=== PATIENT | female | born 1950 | race Native Hawaiian/Other Pacific Islander ===

== ENCOUNTER 2016-09-19 13:34 | Outpatient (CLI) | payer OTHER ==
[~2016-09-19] VITALS: Ht 157.5 cm; Wt 204.1 kg
[~2016-09-19 13:34] MED LIST: ASA LO-DOSE81 MG PO; ASPIRIN81 M1 OR; ESCITALOPRAM20 MG PO; FLUT0.05 NAS; FURO20TA67 PO; GABA300C2 PO; KLOR-CON M2020 MEQ PO; LICE TREATMT1 % EX; LISI5TAB10 PO; OMEPRAZOLE40 MG PO; PANT40TA PO; PLAVIX75 MG PO; ROPINIROLE0.5 MG PO; SINGULAIR10 MG PO; SPIRIVA INH; TRIA0.1C19 TOP; ZANTAC300 MG PO
[2016-09-19 13:45] VITALS: BP 88/53; TEMP 98.5
== END 2016-09-19 20:08 | disposition home or self-care (01) ==
LOC: INF 13:34
DX: M81.0 Age-related osteoporosis without current pathological fracture (principal)
CPT/HCPCS: 36415; 82310; 96372; J0897

== ENCOUNTER 2017-01-25 17:28 | Inpatient (IN) | payer OTHER ==
[~2017-01-25] VITALS: Ht 154.9 cm; Wt 120.9 kg
[2017-01-25 17:15] VITALS: BP 136/80; TEMP 98.3
[2017-01-25 18:12] LABS: PLATELET COUNT 207 K/uL (152-353)
[2017-01-25 18:32] VITALS: BP 146/105
[2017-01-25 19:00] VITALS: BP 142/122
[2017-01-25 19:20] VITALS: BP 153/87
[2017-01-25 20:00] VITALS: BP 129/72; TEMP 98.2
[2017-01-25 21:31] VITALS: BP 129/72; TEMP 98.2; Ht 154.9 cm; Wt 120.9 kg
[2017-01-25] MEDS ORDERED: LORATADINE10 MG OR (22:31)
[2017-01-25] MEDS ORDERED: VESICARE5 MG OR (22:33)
[2017-01-25] MEDS ORDERED: MOBIC7.5 M1 PO (22:34)
[2017-01-25] MEDS ORDERED: ACID REDUCER150 M1 PO (22:40)
[2017-01-25] MEDS ORDERED: ASA LOW DOSE81 MG OR (22:45)
--- NOTE | 2017-01-25 23:11 | NUR ---
NEBULIZER EQUIPMENT WAS NOT BROUGHT FROM ER, HAD TO GET PATIENT NEW SET UP
[2017-01-26] VITALS: BP 95/42; TEMP 98.4
[2017-01-26 00:24] LABS: POTASSIUM 5.7 mmol/L (3.6-5.2)
--- NOTE | 2017-01-26 01:02 | NUR ---
01/25/17 AT 2130IV LASIX GIVE PER ORDER AND FLUSHED BEFORE AND AFTER EASILY WITH 5ML NS. IV LOCK INTACT WITH NO PROBLEMS NOTED.
[2017-01-26 04:00] VITALS: BP 110/42; TEMP 98.4
[2017-01-26 04:55] LABS: PLATELET COUNT 155 K/uL (152-353)
[2017-01-26 06:33] LABS: POTASSIUM 4.7 mmol/L (3.6-5.2)
[2017-01-26 07:41] VITALS: BP 98/44; TEMP 98.2
[2017-01-26 12:00] VITALS: BP 132/42; TEMP 98.1
[2017-01-26 16:18] VITALS: BP 144/91; TEMP 98
[2017-01-26 16:52] LABS: PLATELET COUNT 183 K/uL (152-353)
--- NOTE | 2017-01-26 17:50 | NUR ---
NOTIFIED DR STERLING OF BNP DOWN TO 221 AND WBC 17. NO NEW ORDERS RECEIVED.
[2017-01-26 20:00] VITALS: BP 90/46; TEMP 101.4
[2017-01-27 00:22] VITALS: BP 93/40; TEMP 100.3
[2017-01-27 04:00] VITALS: BP 107/49; TEMP 99
[2017-01-27 05:01] LABS: PLATELET COUNT 173 K/uL (152-353)
[2017-01-27 05:24] LABS: POTASSIUM 4.4 mmol/L (3.6-5.2)
--- NOTE | 2017-01-27 06:17 | NUR ---
01/26/17 AT [id number] IV LOCK TO R AC FLUSHED EASILY WITH 10 ML NS, NO PROBLEMS NOTED TO SITE.
[2017-01-27 08:00] VITALS: BP 113/60; TEMP 99.7
[2017-01-27 12:13] VITALS: BP 98/46; TEMP 98.5
[2017-01-27 16:00] VITALS: BP 93/52; TEMP 98.2
--- NOTE | 2017-01-27 19:40 | NUR ---
PT DISCHARGED TO HOME, GAVE D/C INSTRUCTIONS, IV D/C'D TIP INTACT, NO REDNESS, EDEMA OR SWELLING, PT AWAITING A RIDE HOME, NAD NOTED, NO C/O VOICED.
== END 2017-01-27 20:40 | disposition home or self-care (01) | DRG 292 ==
LOC: ED 17:28 → MED/SURG 19:00
PROVIDERS: ADMIT Family Medicine
DX: I50.9 Heart failure, unspecified (principal); J44.1 Chronic obstructive pulmonary disease with (acute) exacerbation; D72.828 Other elevated white blood cell count; F32.89 Other specified depressive episodes
CPT/HCPCS: 36415; 36600; 80053; 82805; 83735; 83880; 85027; 87070; 87205; 93005; 94640; 94664; 94760; 96374; 99283; J1940

== ENCOUNTER 2017-02-14 18:27 | Outpatient (CLI) | payer OTHER ==
[~2017-02-14 18:27] MED LIST changes: +ACID REDUCER150 M1 PO; +ASA LOW DOSE81 MG OR; +LORATADINE10 MG OR; +MOBIC7.5 M1 PO; +VESICARE5 MG OR
== END 2017-02-14 19:30 | disposition home or self-care (01) ==
LOC: LAB 18:27
DX: R06.02 Shortness of breath (principal); I50.9 Heart failure, unspecified
CPT/HCPCS: 83880

== ENCOUNTER 2017-03-03 12:57 | Outpatient (CLI) | payer OTHER ==
[2017-03-03] MEDS ORDERED: PROTONIX20 MG PO (18:51)
== END 2017-03-03 13:52 | disposition home or self-care (01) ==
LOC: INF 12:57
DX: M81.0 Age-related osteoporosis without current pathological fracture (principal)
CPT/HCPCS: 36415; 82310; 96372; J0897

== ENCOUNTER 2017-03-03 18:26 | Inpatient (IN) | payer OTHER ==
[~2017-03-03] VITALS: Ht 149.9 cm; Wt 116.6 kg
[2017-03-03] MEDS ORDERED: PROTONIX20 MG PO (18:51)
[2017-03-03 18:53] VITALS: BP 1047/48; BP 147/48; TEMP 99.2
[2017-03-03 19:42] LABS: PLATELET COUNT 178 K/uL (152-353)
[2017-03-03 20:22] LABS: PARTIAL THROMBOPLASTIN TIME 28.8 SECONDS (24.5-33.6)
[2017-03-03 21:57] VITALS: BP 138/64; TEMP 99
[2017-03-04] VITALS (23 sets, daily range): BP systolic 94–149; BP diastolic 42–97; TEMP 97.9–99; Ht 149.9 cm; Wt 116.6 kg
--- NOTE | 2017-03-04 02:43 | NUR ---
03/03/2017 @ 2206 PT. ADMITTED TO ROOM 1107 VIA WHEELCHAIR. PT. ORIENTED TO ROOM, CALL SYSTEM. PT. VERBALIZES UNDERSTANDING OF ALL INSTRUCTIONS. CALL LIGHT WITHIN REACH. WILL CONTINUE TO MONITOR.
--- NOTE | 2017-03-04 05:59 | NUR ---
PRN TREATMENT GIVEN TO HELP BRING O2 SATS UP, SATS WAS IN THE 70'S WITH NASAL CANNULA AT FIVE LITERS AND TREATMENT GOING COME UP TO 92
--- NOTE | 2017-03-04 07:00 | NUR ---
UPON ROUNDING, PT O2 SAT 88% ON 3L NC. PT ALERT AND ORIENTED. DENIES ANY PAIN/DISCOMFORT/SOB. ASSESSMENT COMPLETE. DR STERLING NOTIFIED OF PT CONDITIONED. RESP IN TO ASSESS PT AND DRAW ABG. 0800- ABG OBTAINED AND RESULTS CALLED TO DR STERLING. NEW ORDERS GIVEN TO MOVE PT TO PCU WITH BIPAP. 08- PT MOVED TO PCU 1, REPORT GIVEN TO MARLINE FATIMA.
--- NOTE | 2017-03-04 08:15 | NUR ---
PT TO PCU 1 [facility] RM [facility] PT ON 3L/NC,O2 SAT 88%. PT A& O X 3,DENIES STRESS.
[2017-03-04 08:25] LABS: PLATELET COUNT 151 K/uL (152-353)
--- NOTE | 2017-03-04 08:30 | NUR ---
PT PLACED ON BIPAP 12/6 34% O2 PER RT.BOUCHER TO BSD WITH CL YELLOW URINE.
[2017-03-04 08:38] LABS: POTASSIUM 4.8 mmol/L (3.6-5.2)
--- NOTE | 2017-03-04 09:30 | NUR ---
PT CONTINUES TO REST WITH EYES CLOSED,O2 SAT 91%.
--- NOTE | 2017-03-04 11:34 | NUR ---
PT WITH O2 SAT 84-85% RT AT BS ,BIPAP CHANGED TO AVAP MODE15/5 375 TV,36% O2,O2 SATS UP TO 89%-91%.
--- NOTE | 2017-03-04 13:30 | NUR ---
PT REFUED LUNCH,RESTING ON BIPAP,O2 SAT 90%.
--- NOTE | 2017-03-04 15:10 | NUR ---
PT ASSISTED TO TURN TO L SIDE,O2 SATS DECREASED TO 81% AFTER DRINKING WATER. SLOWLY BACK UP TO 88%. REPORTED TO SANTHOSH IN RT.
--- NOTE | 2017-03-04 17:00 | NUR ---
BATH & PERSONAL CARE. PT A& O,O2 SAT 91%.
--- NOTE | 2017-03-04 18:00 | NUR ---
PT CHANGED TO BIPAP ST 15/8,40% O2 PER RT.
--- NOTE | 2017-03-04 18:30 | NUR ---
DR STERLING IN TO SEE PT,REVIEWED ABG,NEW ORDERS TO RESUME HOME MEDS.
--- NOTE | 2017-03-04 20:00 | NUR ---
PM ASSESSMENT COMPLETED. PT REMAINS ON BI-PAP. BOUCHER DRAINING AT BEDSIDE. PT OFFERS NO COMPLAINTS AT THIS TIME.
--- NOTE | 2017-03-04 22:20 | NUR ---
DR. MC AT BEDSIDE FOR INTUBATION. RESPIRATORY THERAPIST AT BEDSIDE.
--- NOTE | 2017-03-04 22:30 | NUR ---
ETOMIDATE 20MG GIVEN IV PUSH PER DR. MC.
--- NOTE | 2017-03-04 22:32 | NUR ---
SUCCINYCHOLINE 100MG GIVEN PER DR. MC.
--- NOTE | 2017-03-04 22:45 | NUR ---
DIPRIVAN STARTED AT 5ML PER IV PUMP.
--- NOTE | 2017-03-04 23:00 | NUR ---
RADIOLOGY PRESENT FOR TUBE PLACEMENT.
--- NOTE | 2017-03-04 23:12 | NUR ---
DR. MC AT BEDSIDE READING CHEST X-RAY RESULTS OF TUBE PLACEMENT. ET TUBE PULLED BACK FROM 23 LIPLINE, TO [address] MC.
--- NOTE | 2017-03-04 23:15 | NUR ---
RESPIRATORY THERAPIST PRESENT TO OBTAIN ABG.
--- NOTE | 2017-03-04 23:25 | NUR ---
DR. MC AT BEDSIDE. NURSES AT BEDSIDE. PT HR 70 DECREASED TO 40, THEN 25. CHEST COMPRESSIONS INTIATED.
--- NOTE | 2017-03-04 23:30 | NUR ---
ONE AMPULE EPINEPHRINE GIVEN IV.
--- NOTE | 2017-03-04 23:35 | NUR ---
PULSE RATE 83. 2338 PULSE 125
--- NOTE | 2017-03-04 23:46 | NUR ---
02 SATURATION 75%, PULSE 128
--- NOTE | 2017-03-04 23:49 | NUR ---
IV STARTED WITH 22GAUGE CATHETER TO RIGHT HAND PER MARIIA BELCHER RN. IV IN RAC INFILTRATED. DC'D.
--- NOTE | 2017-03-04 23:50 | NUR ---
SODIUM BICARBONATE ONE AMPULE PER DR. MC.
[2017-03-05] VITALS (22 sets, daily range): BP systolic 90–151; BP diastolic 49–97; TEMP 97.9–99
--- NOTE | 2017-03-05 00:01 | NUR ---
RADIOLOGY PRESENT TO CHECK ET TUBE PLACEMENT. PT SUCTIONED MODERATE AMOUNT OF BLOODY MUCOUS.
--- NOTE | 2017-03-05 00:14 | NUR ---
O2 SATURATION 95%, PULSE 123, 0025 O2 SAT 83. 0030 SATURATION 91%.
--- NOTE | 2017-03-05 00:35 | NUR ---
DIPRIVAN TO 25CC/HR DUE TO PT BITING ET TUBE.
--- NOTE | 2017-03-05 03:00 | NUR ---
IV IN RIGHT AC BLEEDING FROM SITE. UNABLE TO FLUSH. SITE DC'D. PT TOLERATED WELL.PT STATES SHE IS SLEEPING WELL.
--- NOTE | 2017-03-05 06:20 | NUR ---
HEP LOCK STARTED WITH 22G CATHETER TO LEFT ARM PER ONE ATTEMPT BY TAWANNA BELCHER RN. LABS DRAWN AT THIS TIME. RESPIRATORY THERAPIST PRESENT FOR ABG
[2017-03-05 06:36] LABS: PLATELET COUNT 210 K/uL (152-353)
[2017-03-05 06:53] LABS: POTASSIUM 4.8 mmol/L (3.6-5.2)
--- NOTE | 2017-03-05 07:00 | NUR ---
PT RESTING IN LF WITH EYES CLOSED.PT ON BIPAP. O2 SAT 93%.
--- NOTE | 2017-03-05 10:00 | NUR ---
PT OFF BIPAP PLACED ON O2 AT 3L/NC TO DRINK JUICE. REFUSES TO EAT BREAKFAST
--- NOTE | 2017-03-05 10:15 | NUR ---
PT'S COLOR SL DUSKY,O2 SATS 88%, PT STATES 'IM OK,THATS HOW I AM AT HOME'.REFUSED TO GO BACK ON BIPAP AT THIS TIME.
--- NOTE | 2017-03-05 11:20 | NUR ---
PT PLACED BACK ON BIPAP PER RT.
--- NOTE | 2017-03-05 11:29 | NUR ---
DR STERLING IN TO SEE PT. PT RESTING IN HF WITH EYES CLOSED.
--- NOTE | 2017-03-05 11:45 | NUR ---
DR STERLING IN TO SEE PT. REVIEWEDLABS. REPORTED PT'S DESATTING WHEN ON 3L/NC. NEW ORDERS.
--- NOTE | 2017-03-05 12:36 | NUR ---
BC DRAWN PER LAB.
--- NOTE | 2017-03-05 17:48 | NUR ---
G DRAWN. PT ON BIPAP. SMART VEST IN PROGRESS.
--- NOTE | 2017-03-05 18:10 | NUR ---
ABG RESULTS TO DR STERLING NO NEW ORDERS.
[2017-03-06] VITALS (24 sets, daily range): BP systolic 82–127; BP diastolic 46–92; TEMP 97.5–99.4
--- NOTE | 2017-03-06 02:48 | NUR ---
PATIENT NOTED WITH PERSISTANT COUGH IN THE PAST HOUR. PATIENT STATED " IT'S JUST THIS COUGH, THATS KEEPING ME UP". CALLED AND NEW ORDERS GIVEN AT THIS TIME.
[2017-03-06 06:46] LABS: POTASSIUM 4.2 mmol/L (3.6-5.2)
[2017-03-06 06:54] LABS: PLATELET COUNT 216 K/uL (152-353)
--- NOTE | 2017-03-06 08:18 | NUR ---
AM ASSESSEMENT DONE PT UP IN BED REMOVED BIPAP, PLACED ON 3L NC SAT 91% CHEST X RAY DONE UP FOR BREAKFAST. AM CARE DONE NO COMPLAINTS.
--- NOTE | 2017-03-06 10:00 | NUR ---
REMAINS OFF BIPAP, COUGHING PRODUCTIVE THICK GREEN-YELLOW SPUTUM PT WEARING VEST FOR CPT. HELPED TO BREAK UP SECRETION RECIEVED BREATHING TX. NO COMPLAINTS OF PAIN. APPEARS TO BE DOING BETTER.
--- NOTE | 2017-03-06 11:08 | NUR ---
BLOOD SUGAR 269. SITTING UP IN BED REPOSITIONED FOR COMFORT. WILL CALL DR STERLING.
--- NOTE | 2017-03-06 12:00 | NUR ---
PULLED UP IN BED SERVED LUNCH TRAY ALIZA WELL. CALLED TO DR STERLING REPORT PT STATUS. RECIEVED ORDERS FOR SSI AND BLOOD SUGAR AC AND HS. WEARING O2 AT 3L NC SAT 92%
--- NOTE | 2017-03-06 14:00 | NUR ---
PULLED UP IN BED REPOSITIONED IN BED NO COMPLAINTS HAS ALIZA O2 VIA NC TODAY, COUGHING PRODUCTIVE THICK SPUTUM. RECIEVED BREATHING TX AND NEBS. RECIEVED BED BATH.
--- NOTE | 2017-03-06 16:00 | NUR ---
C/O PAIN AT IV SITE. NO REDNESS NO SWELLING AT SITE JUST PAIN WHEN FLUSHED. REMOVED IV CATH INTACT. RESTART IV RIGHT ARM AC. 20 RESTART IV ANTIBOTICS.
--- NOTE | 2017-03-06 17:15 | NUR ---
DR STERLING VISITED, CHECKED PT RECIEVED NEW ORDERS. PT UP IN BED REPOSITIONED EATING SUPPER. NO COMPLAINTS.
--- NOTE | 2017-03-06 19:00 | NUR ---
Received pt resting in bed watching tv. Pt alert and oriented. No distress noted. Assessment completed. Denies pain at this time. Lungs clear to auscultation. [place] to BSD. 20g to RAC SL. No s/s of infiltration noted. Resp even and non labored. Bed in lowest position. Will continue to monitor.
--- NOTE | 2017-03-06 22:10 | NUR ---
Pt placed back on BIPAP for the night per Resp. No distress noted. VSS per monitor.
[2017-03-07] VITALS (16 sets, daily range): BP systolic 94–1114; BP diastolic 57–84; TEMP 98–99.4
--- NOTE | 2017-03-07 02:00 | NUR ---
No distress noted. Pt resting with eyes closed. VSS per monitor.
--- NOTE | 2017-03-07 05:41 | NUR ---
A.M labs drawn and repositioned pt in bed. Placed back on NC at 3L/min at this time. Denies pain. VSS per monitor. No distress noted. No change in assessment at this time. Will continue to monitor.
[2017-03-07 06:06] LABS: POTASSIUM 4.1 mmol/L (3.6-5.2)
[2017-03-07 06:14] LABS: PLATELET COUNT 190 K/uL (152-353)
--- NOTE | 2017-03-07 22:21 | NUR ---
RT PLACED OVERNIGHT PULSE OX ON PATIENT AT 2215. PATIENT ON 3 LPM NASAL CANNULA.
[2017-03-08] VITALS: BP 115/56; TEMP 98
[2017-03-08 04:00] VITALS: BP 145/67; TEMP 98.2
[2017-03-08 07:01] LABS: PLATELET COUNT 182 K/uL (152-353)
[2017-03-08 07:40] LABS: POTASSIUM 4.4 mmol/L (3.6-5.2)
[2017-03-08 08:00] VITALS: BP 120/65; TEMP 98
[2017-03-08 12:00] VITALS: BP 151/67; TEMP 98.4
[2017-03-08 16:00] VITALS: BP 104/43; TEMP 98.3
--- NOTE | 2017-03-08 16:15 | NUR ---
PATIENT WAS REFERRED TO JAYLON MOON FOR ADMISSION TO THEIR [facility] PROGRAM AND JAYLON CAME YESTERDAY AND TOLD US THE INFO HE NEEDED WHICH INCLUDED A OVERNIGHT ABG ON THREE LITERS OF O2. THIS STUDY WAS DONE AND THE RESULTS OF ALL TEST AND OTHER DOCUMENTATION WAS GIVEN TO JAYLON TAPIA AND THEY ARE BEING REVIEWED AND WE ARE WAITING TO DISCHARGE PATIENT UNTIL SHE CAN GET A BIPAP MACHINE AT HOME.
--- NOTE | 2017-03-08 16:30 | NUR ---
DC INSTRUCTIONS GIVEN TO PT. PT VERBALIZED UNDERSTANDING. PT STATED SHE HAS APPT WITH DR STERLING ALREADY. INSTRUCTED PT SET UP FOR TRILOGY TOMORROW AND TO USE CPAP UNTIL THEN. PT VERBALIZED UNDERSTANDING. BLADDER TRAINING BEGAN AT THIS TIME. IV DC'D WITH CANNULA INTACT AND SITE CARE PROVIDED.
--- NOTE | 2017-03-08 18:56 | NUR ---
1830- SANDER MARROQUIN'Anabelle AT THIS TIME 1856-PT LEFT VIA WC AT THIS TIME. NAD NOTED
== END 2017-03-08 18:56 | disposition home or self-care (01) | DRG 190 ==
LOC: ED 18:26 → ICU 21:00 → MED/SURG 21:00 → ICU 03-04 08:06 → MED/SURG 03-07 16:30 → ICU 03-07 16:30 → MED/SURG 03-07 16:30
PROVIDERS: Family Medicine; ADMIT Emergency Medicine
DX: J44.1 Chronic obstructive pulmonary disease with (acute) exacerbation (principal); J96.00 Acute respiratory failure, unspecified whether with hypoxia or hypercapnia; I10 Essential (primary) hypertension; I50.9 Heart failure, unspecified; E66.01 Morbid (severe) obesity due to excess calories; Z89.612 Acquired absence of left leg above knee
CPT/HCPCS: 36415; 36600; 51702; 80053; 81000; 82550; 82805; 82948; 82962; 83735; 83880; 84100; 84484; 85027; 85610; 85730; 87040; 87070; 87205; 93005; 94640; 94664; 94668; 94760; 96372; 99283; J1650; J1885; J1940; J2930

== ENCOUNTER 2017-03-30 13:56 | Outpatient (CLI) | payer OTHER ==
[~2017-03-30 13:56] MED LIST changes: +PROTONIX20 MG PO
== END 2017-03-30 15:30 | disposition home or self-care (01) ==
LOC: RESP 13:56
DX: G47.33 Obstructive sleep apnea (adult) (pediatric) (principal)
CPT/HCPCS: 94640; 94664

== ENCOUNTER 2017-08-01 13:51 | Outpatient (CLI) | payer OTHER | END 2017-08-01 21:43 | disposition home or self-care (01) | LOC: RAD 13:51 | DX: M54.5 Low back pain (principal); M54.16 Radiculopathy, lumbar region; G89.4 Chronic pain syndrome; M19.011 Primary osteoarthritis, right shoulder; M19.012 Primary osteoarthritis, left shoulder ==

== ENCOUNTER 2017-12-23 19:53 | Emergency (ER) | payer OTHER ==
[~2017-12-23] VITALS: Ht 149.9 cm; Wt 129.3 kg
[2017-12-23 21:32] VITALS: BP 119/84; TEMP 98.8
== END 2017-12-24 00:58 | disposition home or self-care (01) ==
LOC: ED 19:53
DX: M17.11 Unilateral primary osteoarthritis, right knee (principal); W06.XXXA Fall from bed, initial encounter; Y92.89 Other specified places as the place of occurrence of the external cause
CPT/HCPCS: 99283; L1830

== ENCOUNTER 2019-03-29 13:15 | Outpatient (CLI) | payer OTHER | END 2019-03-29 23:48 | disposition home or self-care (01) | LOC: RAD 13:15 | DX: Z13.820 Encounter for screening for osteoporosis (principal); N95.8 Other specified menopausal and perimenopausal disorders ==